=== PATIENT | male | born 1965 | race American Indian/Alaskan Native ===

== ENCOUNTER 2016-12-03 12:01 | Emergency (ER) | payer BC ==
[2016-12-03 12:46] LABS: Basophils % (Auto) 0.5 % (0.0-1.8); Hematocrit 43.8 % (35.5-45.6); Hemoglobin 14.3 gm/dl (11.8-15.2); Mean Corpuscular HGB Conc 33 % (32-34); Mean Corpuscular Hemoglobin 27 pg (28-32); Mean Corpuscular Volume 84 fl (84-94); Platelet Count 213 K/mm3 (140-440); Red Blood Count 5.24 M/mm3 (3.65-5.03); Red Cell Distribution Width 14.1 % (13.2-15.2); White Blood Count 5.7 K/mm3 (4.5-11.0)
[2016-12-03 13:11] LABS: Alanine Aminotransferase 21 units/L (7-56); Albumin 4.1 g/dL (3.9-5); Albumin/Globulin Ratio 1.3 %; Alkaline Phosphatase 36 units/L (35-129); Anion Gap 17 mmol/L; Bilirubin,Total 0.9 mg/dL (0.1-1.2); Blood Urea Nitrogen 10 mg/dL (9-20); Calcium 8.9 mg/dL (8.4-10.2); Carbon Dioxide 25 mmol/L (22-30); Chloride 99.8 mmol/L (98-107); Glucose 103 mg/dL (75-100); Lipase 29 units/L (13-60); Sodium 138 mmol/L (137-145); Total Protein 7.2 g/dL (6.3-8.2)
[2016-12-03 13:54] LABS: Bilirubin,Urine NEG (Negative); Blood,Urine NEG (Negative); Ketones,Urine NEG (Negative); Leukocyte Esterase,Urine NEG (Negative); Mucus,Urine FEW /HPF; Nitrite,Urine NEG (Negative); Protein,Urine <15 mg/dL mg/dL (Negative); Urobilinogen,Urine < 2.0 mg/dL (<2.0); WBC,Urine < 1.0 /HPF (0.0-6.0)
--- NOTE | 2016-12-03 20:09 | Emergency Department Report ---
HPI - General Chief Complaint: Abdominal Pain Time Seen by Provider: 12/03/16 19:32 - HPI HPI: This is a 51-year-old Afro-Irish male who presents the emergency department from home with the complaint of a 1.5 week history of bilateral flank pain and right lower back discomfort. The patient had originally seen his primary care doctor, Dr. Mina, and said that he had multiple labs done and was diagnosed with irritable bowel syndrome. He was also having some dysuria at that time but had a clear urinalysis. He was placed on Levaquin for the IBS. The patient was not convinced that this was his problem and used a telemedicine physician from work and was placed on amoxicillin for possible urinary tract infection. Patient still has the discomfort as well as some bloating and therefore is here at [facility] for further evaluation. The patient had a negative colonoscopy on September 12. He is not taking anything recently for his symptoms. He has a history of borderline diabetes. No recent travel or sick contacts at home. He denies any problems with bowel or bladder, numbness or paresthesias or any neurological deficits. ED Past Medical Hx - Past Medical History Previous Medical History?: Yes Hx Diabetes: Yes Additional medical history: abd. pain, Irritable bowel - Surgical History Past Surgical History?: No - Social History Smoking Status: Never Smoker Substance Use Type: Non Opiate Pain, Prescribed - Medications Home Medications: Home Medications Medication Instructions Recorded Confirmed Last Taken Type Erythromycin [Erythromycin Ophth 10 applic OP BID #1 tube 11/03/15 Unknown Rx Oint] ED Review of Systems ROS: Stated complaint: ABD PAIN/LWR RT BACK PAIN Other details as noted in HPI Comment: All other systems reviewed and negative Constitutional: denies: chills, fever Eyes: denies: eye pain, eye discharge, vision change ENT: denies: ear pain, throat pain Respiratory: denies: cough, shortness of breath, wheezing Cardiovascular: denies: chest pain, palpitations Gastrointestinal: abdominal pain. denies: nausea, vomiting Genitourinary: dysuria. denies: discharge Musculoskeletal: denies: back pain, joint swelling, arthralgia Skin: denies: rash, lesions Neurological: denies: headache, weakness, paresthesias Physical Exam - Physical Exam Vital Signs: Vital Signs 12/03/16 12/03/16 12:06 19:41 Temperature 98.1 F 98 F Pulse Rate 73 80 Respiratory 20 16 Rate Blood Pressure 145/90 Blood Pressure 131/86 [Left] O2 Sat by Pulse 99 99 Oximetry Physical Exam: GENERAL: The patient is well-developed well-nourished. HEENT: Normocephalic. Atraumatic. Extraocular motions are intact. Patient has moist mucous membranes. Pupils equal reactive to light bilaterally. NECK: Supple. Trachea is midline. CHEST/LUNGS: Clear to auscultation. There is no respiratory distress noted. HEART/CARDIOVASCULAR: Regular. There is no tachycardia. There is no gallop rub or murmur. ABDOMEN: Abdomen is soft, nontender. Unable to reproduce patient's flank pain to palpation. No guarding rebound tenderness. Patient has normal bowel sounds. There is no abdominal distention. SKIN: There is no rash. There is no edema. There is no diaphoresis. NEURO: The patient is awake, alert, and oriented. The patient is cooperative. The patient has no focal neurologic deficits. The patient has normal speech. MUSCULOSKELETAL: There is no tenderness or deformity. There is no limitation range of motion. There is no evidence of acute injury. Muscle strength 5 out of 5 for upper and lower extremities including EHL laterally. BACK: No midline thoracic or lumbar tenderness to palpation or deformity. There is some reproducible right-sided paraspinal tenderness to palpation. ED Course Vital Signs 12/03/16 12/03/16 12:06 19:41 Temperature 98.1 F 98 F Pulse Rate 73 80 Respiratory 20 16 Rate Blood Pressure 145/90 Blood Pressure 131/86 [Left] O2 Sat by Pulse 99 99 Oximetry ED Medical Decision Making - Lab Data Result diagrams: 12/03/16 12:30 12/03/16 12:30 - Radiology Data Radiology results: report reviewed CT of the abdomen pelvis with IV contrast was read by radiology as no acute abdominal pelvic pathology seen. Incidental findings include mild atrophy of the pancreatic tail with some slight lobulation of the pancreas in which a 11 x 14 mm mass is not entirely excludable but appears isoechoic 2 pancreatic parenchyma. Dedicated IV contrast enhanced MRI may be helpful. There are also some small cystic changes to the lower kidney. Moderate stool volume. - Medical Decision Making 51-year-old male presents the emergency department with a 1.5 week history of some flank pain bilaterally and some right lower back pain. There is no focal, motor or sensory deficits. No numbness or paresthesias, problems with bowel or bladder or any neurological deficits. Patient's labs are unremarkable including normal belly labs, no leukocytosis, normal kidney function and no urinary tract infection or hematuria. CT does not show any acute processes. Incidental findings include lumbar disc bulging that could be the source of his back pain. There is also some slightly abnormal findings of the pancreatic tail that need further evaluation to fully exclude a mass. All this information has been given to the patient as well as a copy of the CT results certainly brought to his primary care doctor. He will see his PCP or return to the ER with any worsening of symptoms in any acute distress. - Differential Diagnosis muscle spasm, disc disease, nephrolithiasis, colitis, UTI, pyelonephritis Critical Care Time: No Critical care attestation.: If time is entered above; I have spent that time in minutes in the direct care of this critically ill patient, excluding procedure time. ED Disposition Clinical Impression: Bilateral flank pain Lower back pain Qualifiers: Chronicity: acute Back pain laterality: right Sciatica presence: without sciatica Qualified Code(s): M54.5 - Low back pain Disposition: DISCHARGED TO HOME OR SELFCARE Is pt being admited?: No Condition: Stable Instructions: Flank Pain (ED), Back Pain (ED) Additional Instructions: Please follow-up with your primary care doctor and show him the CT results that you've been given. Return to the emergency department with any worsening of your symptoms or any acute distress. Referrals: MAGNO FLOWERS MD [Primary Care Provider] - 3-5 Days Time of Disposition: 22:16
[2016-12-03] MEDS ORDERED: VALIUM ONE (20:25)
[2016-12-03] MEDS ORDERED: APRESOLINE ONE (20:25)
[2016-12-03] MEDS ORDERED: ZOFRAN ONE (20:25)
--- NOTE | 2016-12-03 21:57 | Cat Scan Report ---
FINAL REPORT PROCEDURE: CT ABDOMEN PELVIS W CON TECHNIQUE: Computerized axial tomography of the abdomen and pelvis was performed after the IV injection of iodinated nonionic contrast. HISTORY: Abd pain COMPARISON: No prior studies are available for comparison. FINDINGS: Visualized lower thorax: No significant abnormality. Liver: Normal size and attenuation. Spleen: Normal size and attenuation. Gallbladder and biliary system: Normal. Pancreas: Mild atrophy of the pancreatic tail. There is slight lobulation of the pancreas including midbody posteriorly axial 50. An 11 x 14 millimeter mass is not entirely excludable but appears isoechoic to pancreatic parenchyma. Followup and further workup with IV contrast-enhanced MRI may be helpful. Adrenals: Normal. Kidneys: Small cystic changes of the lower kidney largest of which in lower pole measuring 10 x 5 millimeters. GI tract: No oral contrast. Moderate stool density. Normal caliber appendix.. Small hiatal hernia Lymph nodes and mesentery: Scattered small 1 centimeter lymph nodes. Vasculature: Normal. Bladder: Normal. Reproductive organs: Normal. Peritoneum: No free fluid. Musculoskeletal structures: No significant abnormality. Mild to moderate disc bulging L4-5 L5-S1. Mild bulging L2-3 L3-4 Other: Tiny ventral abdominal wall herniation of fat upper abdomen. IMPRESSION: No acute abdominal pelvic pathology seen Details above Followup advised as warranted
[2016-12-03 23:32] VITALS: BP 124/78
== END 2016-12-03 23:33 | disposition home or self-care (01) ==
LOC: ED 12:01
DX: R10.9 Unspecified abdominal pain (principal); M54.5 Low back pain; E11.9 Type 2 diabetes mellitus without complications
CPT/HCPCS: 36415; 74177; 80053; 81001; 83690; 85025; 99284; Q9967; J0360; J2405; J3360

== ENCOUNTER 2018-10-08 09:32 | Emergency (ER) | payer BC, OTHER ==
[2018-10-08 10:05] VITALS: BP 161/94
[2018-10-08 10:31] LABS: Bilirubin,Urine NEG (Negative); Blood,Urine NEG (Negative); Color,Urine Yellow (Yellow); Mucus,Urine FEW /HPF; Protein,Urine <15 mg/dL mg/dL (Negative); Urobilinogen,Urine < 2.0 mg/dL (<2.0); WBC,Urine < 1.0 /HPF (0.0-6.0)
[2018-10-08] MEDS ORDERED: XYLOCAINE 1% MPF 5 mL INFILTRATI ONE (10:39)
[2018-10-08] MEDS ORDERED: ROCEPHIN IM ONE (10:39)
[2018-10-08] MEDS ORDERED: XYLOCAINE 1% MPF 5 mL ONE (10:42)
[2018-10-08] MEDS ORDERED: ROCEPHIN ONE (10:42)
--- NOTE | 2018-10-08 10:44 | Emergency Department Report ---
ED Male HPI - General Chief complaint: Urogenital-Male Stated complaint: SIDE PAIN/ODOR WHEN URINATING Time Seen by Provider: 10/08/18 10:12 Source: patient Mode of arrival: Ambulatory Limitations: No Limitations - History of Present Illness Initial comments: is a very pleasant healthy 53-year-old male with history of prediabetes who presents with bilateral flank pain for the last 2 weeks. Yesterday he noticed malodorous strong urine. Mild bilateral lower back pain with general malaise. He says some days he feels strong. No fever. No chills. Mild lower abdominal discomfort with bloating. No nausea. No vomiting. Mild symptoms at this time. No history of tobacco/drug use. No history of alcohol use. He is . He works as a electrical /optomechanical technician. No significant family history. MD Complaint: other (bilateral flank pain, strong urine) -: Gradual, week(s) (2) Location: right flank, left flank Severity: mild, moderate Quality: aching, dull Consistency: constant Improves with: none Worsens with: none - Related Data Previous Rx's Medication Instructions Recorded Last Taken Type Erythromycin [Erythromycin Ophth 10 applic OP BID #1 tube 11/03/15 Unknown Rx Oint] Doxycycline Hyclate [Doxycycline 100 mg PO Q12HR 14 Days #28 tab 10/08/18 Unkno wn Rx Hyclate TAB] Allergies Allergy/AdvReac Type Severity Reaction Status Date / Time No Known Allergies Allergy Unverified 11/03/15 11:21 ED Review of Systems ROS: Stated complaint: SIDE PAIN/ODOR WHEN URINATING Other details as noted in HPI Comment: All other systems reviewed and negative Constitutional: malaise Respiratory: denies: cough Cardiovascular: denies: chest pain Gastrointestinal: abdominal pain Musculoskeletal: back pain ED Past Medical Hx - Past Medical History Previous Medical History?: Yes Hx Diabetes: Yes Additional medical history: abd. pain, Irritable bowel - Social History Smoking Status: Never Smoker - Medications Home Medications: Home Medications Medication Instructions Recorded Confirmed Last Taken Type Erythromycin [Erythromycin Ophth 10 applic OP BID #1 tube 11/03/15 Unknown Rx Oint] Doxycycline Hyclate [Doxycycline 100 mg PO Q12HR 14 Days #28 tab 10/08/18 Unknown Rx Hyclate TAB] ED Physical Exam - General Limitations: No Limitations General appearance: alert, in no apparent distress - Head Head exam: Present: atraumatic, normocephalic - Eye Eye exam: Present: normal appearance - ENT ENT exam: Present: mucous membranes moist - Neck Neck exam: Present: normal inspection, full ROM. Absent: tenderness, meningismus - Respiratory Respiratory exam: Present: normal lung sounds bilaterally. Absent: respiratory distress, wheezes, rales, rhonchi - Cardiovascular Cardiovascular Exam: Present: regular rate, normal rhythm, normal heart sounds. Absent: systolic murmur, diastolic murmur, rubs, gallop - GI/Abdominal GI/Abdominal exam: Present: soft, normal bowel sounds. Absent: distended, tenderness, guarding, rebound - Rectal Rectal exam: Present: deferred - Extremities Exam Extremities exam: Present: normal inspection - Back Exam Back exam: Present: normal inspection. Absent: CVA tenderness (R), CVA tenderness (L) - Neurological Exam Neurological exam: Present: alert, oriented X3 - Psychiatric Psychiatric exam: Present: normal affect, normal mood - Skin Skin exam: Present: warm, dry, intact, normal color. Absent: rash ED Course Vital Signs 10/08/18 09:57 Temperature 97.5 F L Pulse Rate 71 Respiratory 16 Rate Blood Pressure 161/94 O2 Sat by Pulse 96 Oximetry ED Medical Decision Making - Lab Data Laboratory Results - last 24 hr 10/08/18 10:12 Urine Bilirubin Neg Urine RBC (Auto) 1.0 Laboratory Results - last 24 hr 10/08/18 10:12 Urine Color Yellow Urine Turbidity Clear Urine pH 7.0 Ur Specific [place] 1.015 Urine Protein <15 mg/dl Urine Glucose (UA) Neg Urine Ketones Neg Urine Blood Neg Urine Nitrite Neg Urine Bilirubin Neg Urine Urobilinogen < 2.0 Ur Leukocyte Esterase Neg Urine WBC (Auto) < 1.0 Urine RBC (Auto) 1.0 Urine Mucus Few - Medical Decision Making Mr. Sandy presents with bilateral flank pain and strong malodorous urine. Urinalysis unremarkable, negative for UTI. However suspect prostatitis. Given ceftriaxone ED. Prescribed doxycycline. Strongly recommended follow-up with his primary care physician. Critical care attestation.: If time is entered above; I have spent that time in minutes in the direct care of this critically ill patient, excluding procedure time. ED Disposition Clinical Impression: Prostatitis Disposition: TO HOME OR SELFCARE Is pt being admited?: No Does the pt Need Aspirin: No Condition: Stable Instructions: Prostatitis (ED) Prescriptions: Doxycycline Hyclate [Doxycycline Hyclate TAB] 100 mg PO Q12HR 14 Days #28 tab Referrals: PRIMARY CARE, [Primary Care Provider] - [facility]
== END 2018-10-08 11:35 | disposition home or self-care (01) ==
LOC: ED 09:32
DX: N41.9 Inflammatory disease of prostate, unspecified (principal); E11.9 Type 2 diabetes mellitus without complications
CPT/HCPCS: 81001; 96372; 99283; J0696